=== PATIENT | male | born 1970 | race Caucasian/White ===

== ENCOUNTER 2021-03-26 19:25 | Emergency (ER) | payer OTHER ==
[2021-03-26 19:36] VITALS: BP 172/108; PULSE 86; TEMP 98.7; BMI 34.4
[2021-03-26] MEDS ORDERED: CEPHALEXIN MONOHYDRATE 500 MG CAPSULE (UD) PO ONE (20:41)
[2021-03-26] MEDS ORDERED: CEPHALEXIN MONOHYDRATE 500 MG CAPSULE (UD) ONE (20:46)
== END 2021-03-26 20:51 | disposition home or self-care (01) ==
LOC: FER 19:25 → SUPCPDRO 19:25 → FER 20:51
DX: M79.642 Pain in left hand (principal); L03.114 Cellulitis of left upper limb
CPT/HCPCS: 73130-TC-LT-FY; 99284-25